=== PATIENT | male | born 1945 | race Caucasian/White ===

== ENCOUNTER → 2018-08-13 10:40 | Outpatient (CLI) | payer BC, SELFPAY ==
[2018-08-13 12:21] LABS: Alanine Aminotransferase 31 IU/L (21-72); Albumin 4.2 g/dL (3.5-5.0); Albumin Globulin Ratio 1.4 (1.0-2.8); Alkaline Phosphatase 73 U/L (38-126); Aspartate Aminotransferase 25 IU/L (17-59); BUN Creatinine Ratio 23.8 (6-22); Bilirubin Total 0.5 mg/dL (0.2-1.3); Blood Urea Nitrogen 19 mg/dL (9-20); Calcium 9.1 mg/dL (8.4-10.2); Carbon Dioxide 27 mmol/L (22-32); Chloride 103 mmol/L (98-107); Cholesterol 166 mg/dL (140-199); Creatine Kinase 140 U/L (55-170); Estimated Glomerular Filt Rate > 60.0 mL/min (>60); Globulin 2.9 g/dL (1.7-4.1); Glucose 112 mg/dL (80-110); HDL Cholesterol 37 mg/dL (40-60); HEMOLYSIS < 15 (0-50); LDL Cholesterol Calculated 112 mg/dL (<100); Potassium 4.3 mmol/L (3.4-5.1); Sodium 140 mmol/L (137-145); Total Protein 7.1 g/dL (6.3-8.2); Triglycerides 86 mg/dL (35-150); Uric Acid 5.5 mg/dL (3.5-8.5)
[2018-08-13 12:56] LABS: Thyroid Stimulating Hormone 1.06 uIU/mL (0.47-4.68)
[2018-08-13 15:38] LABS: Add Manual Diff / Slide Review NO; Basophils Absolute Auto 0 /uL (0-100); Basophils Percent Auto 0.6 % (0-2); Eosinophils Absolute Auto 100 /uL (0-450); Eosinophils Percent Auto 1.7 % (2-4); Hematocrit 46.5 % (41-53); Hemoglobin 15.2 g/dL (13.5-17.5); Lymphocytes Absolute Auto 1300 /uL (1100-4500); Lymphocytes Percent Auto 20.9 % (25-40); Mean Corpuscular HGB Conc 32.8 % (30-36); Mean Corpuscular Hemoglobin 29.2 PG (26-34); Monocytes Absolute Auto 500 /uL (0-900); Monocytes Percent Auto 7.4 % (3-14); Neutrophils Absolute Auto 4500 /uL (1500-7000); Neutrophils Percent Auto 69.4 % (50-75); Platelet Count 209 X10^3/uL (150-400); Red Blood Cell Count 5.22 X10^6/uL (4.5-5.9); Red Cell Distribution Width 15.5 % (11.6-14.8); White Blood Cell Count 6.4 X10^3/uL (4.5-11.0)
== END ==
PROVIDERS: Visit Provider Internal Medicine
DX: E78.5 Hyperlipidemia, unspecified (principal); R73.9 Hyperglycemia, unspecified; M10.9 Gout, unspecified; Z00.01 Encounter for general adult medical examination with abnormal findings
CPT/HCPCS: 36415; 80053; 80061; 82550; 83036; 84443; 84550; 85025

== ENCOUNTER 2018-09-26 18:29 | Emergency (ER) | payer BC, SELFPAY ==
[2018-09-26 18:37] VITALS: BP 147/95; PULSE 72; RESP 16; TEMP 36.8; O2SAT 96
--- NOTE | 2018-09-26 18:38 | DI.CT.S_ITS ---
PROCEDURE: CT HEAD/BRAIN WO CON INDICATIONS: syncope on xeralto TECHNIQUE: Noncontrast 4.5 mm thick angled axial sections acquired from the foramen magnum to the vertex, with coronal and sagittal reformats. For radiation dose reduction, the following was used: automated exposure control, adjustment of mA and/or kV according to patient size. COMPARISON: None. FINDINGS: Image quality: Excellent. CSF spaces: Basal cisterns are patent. No extra-axial fluid collections. The ventricles are symmetric in size and shape. Brain: No intracranial bleeds or masses. There is mild cerebral volume loss for age, with resultant ventricular and sulcal prominence. There are mild periventricular and deep white matter chronic small vessel ischemic changes. There is intracranial internal carotid artery atherosclerosis. Skull and face: Calvarium and visualized facial bones appear intact, without suspicious lesions. Sinuses: Visualized sinuses and mastoids are clear. IMPRESSION: No acute intracranial disease process. Dictated by: Marguerite Cleveland MD, PhD on 09/26/2018 at 19:20 Approved by: Marguerite Cleveland MD, PhD on 09/26/2018 at 19:22
[2018-09-26] MEDS: SODIUM CHLORIDE 0.9% 1,000 ML 1000 ML IV (18:45)
[2018-09-26 18:50] LABS: Add Manual Diff / Slide Review NO; Basophils Absolute Auto 0 /uL (0-100); Basophils Percent Auto 0.5 % (0-2); Eosinophils Absolute Auto 100 /uL (0-450); Eosinophils Percent Auto 1.3 % (2-4); Hematocrit 44.9 % (41-53); Hemoglobin 14.9 g/dL (13.5-17.5); Lymphocytes Absolute Auto 900 /uL (1100-4500); Lymphocytes Percent Auto 10.2 % (25-40); Mean Corpuscular HGB Conc 33.1 % (30-36); Mean Corpuscular Hemoglobin 29.6 PG (26-34); Mean Corpuscular Volume 89.2 fL (80-100); Monocytes Absolute Auto 500 /uL (0-900); Neutrophils Absolute Auto 7000 /uL (1500-7000); Platelet Count 187 X10^3/uL (150-400); Red Blood Cell Count 5.03 X10^6/uL (4.5-5.9); Red Cell Distribution Width 15.5 % (11.6-14.8); White Blood Cell Count 8.6 X10^3/uL (4.5-11.0)
[2018-09-26 18:57] LABS: INR 1.1 (0.9-1.3); Prothrombin Time 12.6 SECONDS (10.1-12.7)
[2018-09-26 19:00] VITALS: BP 109/85; PULSE 86; RESP 18; O2SAT 100
[2018-09-26 19:01] LABS: Alanine Aminotransferase 22 IU/L (21-72); Albumin 4.4 g/dL (3.5-5.0); Albumin Globulin Ratio 1.6 (1.0-2.8); Alkaline Phosphatase 63 U/L (38-126); Aspartate Aminotransferase 23 IU/L (17-59); Bilirubin Total 0.6 mg/dL (0.2-1.3); Blood Urea Nitrogen 20 mg/dL (9-20); Calcium 9.4 mg/dL (8.4-10.2); Carbon Dioxide 30 mmol/L (22-32); Chloride 99 mmol/L (98-107); Creatine Kinase 168 U/L (55-170); Estimated Glomerular Filt Rate > 60.0 mL/min (>60); Globulin 2.7 g/dL (1.7-4.1); Glucose 115 mg/dL (80-110); HEMOLYSIS < 15 (0-50); Potassium 4.5 mmol/L (3.4-5.1); Sodium 137 mmol/L (137-145); Total Protein 7.1 g/dL (6.3-8.2)
--- NOTE | 2018-09-26 19:12 | ED_ITS ---
HPI - Syncope General Chief Complaint: Syncope Stated Complaint: syncope Time Seen by Provider: 09/26/18 18:37 Source: patient and EMS Mode of arrival: EMS Limitations: no limitations History of Present Illness HPI narrative: Patient is 72-year-old male presents with near syncopal episode. He states he was outside gardening all day he had a cup of coffee he does have some yogurt inguinal for breakfast. By this afternoon he went to get his haircut he felt extremely dizzy lightheaded. He may have passed out briefly he says he overall around him he was drooling which does not really remember. He felt like he was going to pass out he knew it was going to happen he got extremely flushed. He has no chest pain no heart palpitations. No focal deficits. He is on Xarelto for atrial fibrillation. No history of stroke. MD complaint: felt faint -: second(s) Prodromal symptoms: lightheaded Witnessed: yes - by bystander Related Data Allergies Allergy/AdvReac Type Severity Reaction Status Date / Time No Known Drug Allergies Allergy Verified 09/26/18 18:37 Review of Systems Review of Systems ROS Unobtainable: All systems reviewed & are unremarkable except as noted in HPI and below Constitutional Denies chills, Denies fever(s), Denies lethargy and Denies weakness Eyes Denies change in vision, Denies eye discharge, Denies irritation and Denies loss of vision ENT Ears, Nose, Mouth, and Throat: Denies change in voice, Denies neck pain and Denies sore throat Cardiovascular Denies chest pain, Reports irregular heart rhythm, Reports lightheadedness and Denies dyspnea Respiratory Denies dyspnea Gastrointestinal Gastrointestinal: Denies abdominal pain, Denies change in bowel habits, Denies diarrhea, Denies nausea and Denies vomiting Musculoskeletal Denies neck pain Integumentary/Breasts Denies pruritus, Denies erythema, Denies rash and Denies wounds Neurologic Denies loss of vision and Denies weakness FOR[facility]LY [facility], [facility] Medical History Atrial fibrillation (Acute) Hyperlipidemia (Acute) Hypertension (Acute) Social History (Updated 09/26/18 @ 19:11 by Ana Arboleda DO) Smoking Status: Never smoker alcohol intake: former substance use type: marijuana Social History Smoking Status: Never smoker alcohol intake: former substance use type: marijuana Exam Initial Vital Signs Initial Vital Signs: Vital Signs Temperature 98.2 F 09/26/18 18:37 Pulse Rate 72 09/26/18 18:37 Respiratory Rate 16 09/26/18 18:37 Blood Pressure 147/95 H 09/26/18 18:37 Pulse Oximetry 96 09/26/18 18:37 GENERAL: Well-appearing, well-nourished and in no acute distress. HEENT: Head atraumatic,EOMI, pupils reactive, face symmetric, CARDIOVASCULAR: Regular rate and rhythm without murmurs, rubs or gallops. RESPIRATORY: Breath sounds equal bilaterally, no wheezes rales or rhonchi. ABDOMEN: Soft, nontender. Normoactive bowel sounds all 4 quadrants. No guarding or rebound. EXTREMITIES: Normal range of motion, no clubbing or edema. Neurovascularly intact NEUROLOGICAL: Alert and oriented x4.Normal gait and speech. Cranial nerves II through XII grossly intact. Good gcahhd-[id number], good [id number], strength equal bilaterally, no dysarthria or aphasia, sensation in tact to soft touch bilaterally, no visual changes, no facial droop SKIN: Warm, dry, no laceration, no petechiae, no rashes or lesions. Scores NIH Stroke Scale Level of Conciousness: Alert, keenly responsive Ask month/age: Answers both questions correctly. Open/close eyes, close hand: Performs both tasks correctly Best gaze horizontal: Normal Visual marie: No visual loss Facial palsy: Normal symetrical movement Left arm drift: No drift for full 10 sec Right arm drift: No drift for full 10 sec Left leg drift: No drift for full 10 sec Right leg drift: No drift for full 10 sec Limb ataxia: Absent Sensory on face/arms/legs: Normal, no sensory loss Best language: No aphasia, normal Dysarthria: Normal Extinction or inattention: No abnormality Total NIH Stroke scale score: 0 Course Orders Ordered: ED Orders 09/26/18 18:38 CT head/brain wo con Stat 09/26/18 18:42 Complete Blood Count AUTO DIFF Stat Comprehensive Metabolic Panel Stat Prothrombin Time INR Stat Troponin & CK Cardiac Panel Stat Discontinued Medications Sodium Chloride (Normal Saline 0.9%) 1,000 mls @ 1,000 mls/hr IV BOLUS ONE Stop: 09/26/18 19:36 Last Admin: 09/26/18 18:45 Dose: 1,000 mls/hr Vital Signs - 8 hr 09/26/18 19:32 Pulse Rate 75 Respiratory Rate 19 Blood Pressure [Left Arm] 126/87 Pulse Oximetry 96 MDM - Syncope Lab Data Attestation: I reviewed the patient's lab results. Result diagrams: 09/26/18 18:42 09/26/18 18:42 Lab Results 09/26/18 09/26/18 09/26/18 Range/Units 18:42 18:42 18:42 WBC 8.6 (4.5-11.0) X10^3/uL RBC 5.03 (4.5-5.9) X10^6/uL Hgb 14.9 (13.5-17.5) g/dL Hct 44.9 (41-53) % MCV 89.2 (80-100) fL MCH 29.6 (26-34) PG MCHC 33.1 (30-36) % RDW 15.5 H (11.6-14.8) % Plt Count 187 (150-400) X10^3/uL Neut % (Auto) 82.0 H (50-75) % Lymph % (Auto) 10.2 L (25-40) % [place] % (Auto) 6.0 (3-14) % Eos % (Auto) 1.3 L (2-4) % Baso % (Auto) 0.5 (0-2) % Neut # (Auto) 7000 (5702-5981) /uL Lymph # (Auto) 900 L (6092-9423) /uL [place] # (Auto) 500 (0-900) /uL Eos # (Auto) 100 (0-450) /uL Baso # (Auto) 0 (0-100) /uL PT 12.6 (10.1-12.7) SECONDS INR 1.1 (0.9-1.3) Sodium 137 (137-145) mmol/L Potassium 4.5 (3.4-5.1) mmol/L Chloride 99 (98-107) mmol/L Carbon Dioxide 30 (22-32) mmol/L BUN 20 (9-20) mg/dL Creatinine 1.00 (0.66-1.25) mg/dL Estimated GFR > 60.0 (>60) mL/min BUN/Creatinine Ratio 20.0 (6-22) Glucose 115 H (80-110) mg/dL Calcium 9.4 (8.4-10.2) mg/dL Total Bilirubin 0.6 (0.2-1.3) mg/dL AST 23 (17-59) IU/L ALT 22 (21-72) IU/L Alkaline Phosphatase 63 (38-126) U/L Total Creatine Kinase 168 (55-170) U/L CK-MB (CK-2) 2.47 H (<2.37) ng/mL CK-MB (CK-2) Rel Index 1.5 (1.5-5.0) % Troponin I < 0.012 (0.01-0.034) ng/mL Total Protein 7.1 (6.3-8.2) g/dL Albumin 4.4 (3.5-5.0) g/dL Globulin 2.7 (1.7-4.1) g/dL Albumin/Globulin Ratio 1.6 (1.0-2.8) Urine Dip Bedside Urine Glucose Negative Bedside Urine Bilirubin - Negative Bedside Urine Ketone - Negative Urine Specific [place] 1.015 Bedside Urine Occult Blood - Negative Bedside Urine pH 6.0 Bedside Urine Protein +/- 15 Bedside Urine Urobilinogen - Negative Bedside Urine Nitrite - Negative Bedside Urine Leukocytes - Negative Esterase Imaging Data CT scan - head: Radiologist's impression: PROCEDURE: CT HEAD/BRAIN WO CON INDICATIONS: syncope on xeralto TECHNIQUE: Noncontrast 4.5 mm thick angled axial sections acquired from the foramen magnum to the vertex, with coronal and sagittal reformats. For radiation dose reduction, the following was used: automated exposure control, adjustment of mA and/or kV according to patient size. COMPARISON: None. FINDINGS: Image quality: Excellent. CSF spaces: Basal cisterns are patent. No extra-axial fluid collections. The ventricles are symmetric in size and shape. Brain: No intracranial bleeds or masses. There is mild cerebral volume loss for age, with resultant ventricular and sulcal prominence. There are mild periventricular and deep white matter chronic small vessel ischemic changes. There is intracranial internal carotid artery atherosclerosis. Skull and face: Calvarium and visualized facial bones appear intact, without suspicious lesions. Sinuses: Visualized sinuses and mastoids are clear. IMPRESSION: No acute intracranial disease process. Dictated by: Marguerite Cleveland MD, PhD on 09/26/2018 at 19:20 ECG Data Attestation: I personally reviewed and interpreted this ECG as follows: Prior ECG tracings: not available for review Interpretation: Atrial fibrillation rate [address] changes no T-wave inversions no priors to compare MDM Narrative Medical decision making narrative: Patient overall is feeling much better. He has had a L of fluid he has been ambulatory to the restroom. He states his urine is no longer dark yellow clear. This is likely dehydration from being outside without any water and only 1 cup coffee. Discharge Plan Departure Patient Disposition: Home Clinical Impression: Dehydration Discharge Date/Time: 09/26/18 19:53 Interventions: ED Discharge Assessment Last Done: 09/26/18 19:53 Instructions: Fainting, DI for Dehydration -- Adult Activity Restrictions/Additional Instructions: *You have been diagnosed with dehydration, fainting *What to do: He were likely dehydrated today from working out in the sun not drinking water. Please remember to drink water while outside, the warm weather can be dehydrated *Continue to take medications as directed *Follow up with your primary care provider in 2-3 days *Return to ER if you should have increasing lightheadedness, chest pain, repeat episode of passing or any new, worsening or concerning symptoms
[2018-09-26 19:13] LABS: Troponin I < 0.012 ng/mL (0.01-0.034)
[2018-09-26 19:16] LABS: CKMB % Relative Index 1.5 % (1.5-5.0); Creatine Kinase MB 2.47 ng/mL (<2.37)
[2018-09-26 19:32] VITALS: BP 126/87; PULSE 75; RESP 19; O2SAT 96
--- NOTE | 2018-10-03 19:19 | PC.NURSE ---
Late Entry IV stop time 199909/26/18. 1000mls infused.
== END 2018-09-26 19:53 | disposition home or self-care (01) ==
PROVIDERS: Emergency Provider Emergency Medicine
DX: E86.0 Dehydration (principal); R55 Syncope and collapse; Z79.01 Long term (current) use of anticoagulants
CPT/HCPCS: 70450; 80053; 81003; 82550; 82553; 84484; 85025; 85610; 93005; 96360; 99283; 99285

== ENCOUNTER → 2020-03-24 12:09 | Outpatient (CLI) | payer OTHER, SELFPAY ==
[2020-03-24 13:01] LABS: Add Manual Diff / Slide Review NO; Basophils Absolute Auto 0 /uL (0-100); Basophils Percent Auto 0.3 % (0-2); Eosinophils Absolute Auto 100 /uL (0-450); Eosinophils Percent Auto 1.3 % (2-4); Hematocrit 46.6 % (41-53); Hemoglobin 15.3 g/dL (13.5-17.5); Lymphocytes Absolute Auto 1100 /uL (1100-4500); Lymphocytes Percent Auto 15.1 % (25-40); Mean Corpuscular HGB Conc 32.7 % (30-36); Mean Corpuscular Hemoglobin 29.2 PG (26-34); Mean Corpuscular Volume 89.1 fL (80-100); Monocytes Absolute Auto 400 /uL (0-900); Monocytes Percent Auto 5.9 % (3-14); Neutrophils Absolute Auto 5900 /uL (1500-7000); Neutrophils Percent Auto 77.4 % (50-75); Platelet Count 187 X10^3/uL (150-400); Red Blood Cell Count 5.23 X10^6/uL (4.5-5.9); Red Cell Distribution Width 15.2 % (11.6-14.8); White Blood Cell Count 7.6 X10^3/uL (4.5-11.0)
[2020-03-24 13:18] LABS: Hemoglobin A1C% w Est Avg Glu 6.3 % (4.0-6.0)
[2020-03-24 13:24] LABS: Alanine Aminotransferase 23 IU/L (<50); Albumin 4.1 g/dL (3.5-5.0); Albumin Globulin Ratio 1.4 (1.0-2.8); Alkaline Phosphatase 75 U/L (38-126); Aspartate Aminotransferase 24 IU/L (17-59); BUN Creatinine Ratio 29.6 (6-22); Bilirubin Total 0.8 mg/dL (0.2-1.3); Blood Urea Nitrogen 21 mg/dL (9-20); Calcium 9.2 mg/dL (8.4-10.2); Carbon Dioxide 28 mmol/L (22-32); Chloride 105 mmol/L (98-107); Creatine Kinase 95 U/L (55-170); Estimated Glomerular Filt Rate > 60.0 mL/min (>60); Globulin 2.9 g/dL (1.7-4.1); Glucose 102 mg/dL (80-110); HEMOLYSIS < 15 (0-50); Potassium 4.2 mmol/L (3.4-5.1); Sodium 137 mmol/L (137-145)
[2020-03-24 13:46] LABS: Thyroid Stimulating Hormone 0.855 uIU/mL (0.47-4.68)
== END ==
DX: Z00.00 Encounter for general adult medical examination without abnormal findings (principal); M10.9 Gout, unspecified; E78.5 Hyperlipidemia, unspecified; R73.9 Hyperglycemia, unspecified; I10 Essential (primary) hypertension
CPT/HCPCS: 36415; 80053; 80061; 82550; 83036; 84443; 84550; 85025

== ENCOUNTER → 2020-05-11 13:02 | Outpatient (CLI) | payer OTHER, SELFPAY ==
[2020-05-11] MEDS: COVID-19 VACC #1, MRNA(MOD) 100 MCG/0.5 ML VIAL IM (13:11)
== END ==
PROVIDERS: Visit Provider Internal Medicine
DX: Z23 Encounter for immunization (principal)
CPT/HCPCS: 0011A; 91301

== ENCOUNTER → 2020-06-08 12:53 | Outpatient (CLI) | payer OTHER, SELFPAY ==
[2020-06-08] MEDS: COVID-19 VACC #2, MRNA(MOD) 100 MCG/0.5 ML VIAL IM (13:06)
== END ==
PROVIDERS: Visit Provider Internal Medicine
DX: Z23 Encounter for immunization (principal)
CPT/HCPCS: 0012A; 91301

== ENCOUNTER → 2021-01-31 15:04 | Outpatient (CLI) | payer OTHER, SELFPAY ==
[2021-01-31 15:39] LABS: Add Manual Diff / Slide Review NO; Basophils Absolute Auto 100 /uL (0-100); Basophils Percent Auto 1.1 % (0-2); Eosinophils Absolute Auto 100 /uL (0-450); Eosinophils Percent Auto 1.7 % (2-4); Hematocrit 43.6 % (41-53); Hemoglobin 14.4 g/dL (13.5-17.5); Lymphocytes Absolute Auto 1200 /uL (1100-4500); Lymphocytes Percent Auto 16.2 % (25-40); Mean Corpuscular HGB Conc 33.1 % (30-36); Mean Corpuscular Hemoglobin 29.2 PG (26-34); Mean Corpuscular Volume 88.2 fL (80-100); Monocytes Absolute Auto 500 /uL (0-900); Monocytes Percent Auto 6.4 % (3-14); Neutrophils Absolute Auto 5400 /uL (1500-7000); Neutrophils Percent Auto 74.6 % (50-75); Platelet Count 192 X10^3/uL (150-400); Red Blood Cell Count 4.94 X10^6/uL (4.5-5.9); Red Cell Distribution Width 14.8 % (11.6-14.8); White Blood Cell Count 7.3 X10^3/uL (4.5-11.0)
[2021-01-31 15:45] LABS: Appearance Urine UA CLEAR; Bilirubin Urine UA NEGATIVE (NEGATIVE); Color Urine UA YELLOW; Glucose Urine UA NEGATIVE (Negative); Ketones Urine UA NEGATIVE (NEGATIVE); Leukocyte Esterase Urine UA TRACE (NEGATIVE); Nitrite Urine UA NEGATIVE (Negative); Occult Blood Urine UA TRACE-LYSED (Negative); Protein Urine UA TRACE (Negative); Specific Gravity Urine UA 1.025 (1.000-1.035); Urobilinogen Urine UA 0.2 E.U./dL (0.2)
[2021-01-31 16:17] LABS: Bacteria Urine Occasional (0-1); Culture Indicated Urine Specimen Cultured; Hyaline Casts Urine 1-5/LPF; RBC Urine 5-10/HPF (0-5/HPF); WBC Urine 5-10/HPF (0-5/HPF)
[2021-01-31 16:29] LABS: Hemoglobin A1C% w Est Avg Glu 5.9 % (4.0-6.0)
[2021-01-31 17:40] LABS: BUN Creatinine Ratio 19.8 (6-22); Blood Urea Nitrogen 17 mg/dL (9-20); Calcium 9.4 mg/dL (8.4-10.2); Carbon Dioxide 30 mmol/L (22-32); Chloride 103 mmol/L (98-107); Estimated Glomerular Filt Rate > 60.0 mL/min (>60); Glucose 99 mg/dL (80-110); HEMOLYSIS < 15 (0-50); Potassium 4.6 mmol/L (3.4-5.1); Sodium 140 mmol/L (137-145)
== END ==
PROVIDERS: Referring Provider Orthopaedic Surgery; Visit Provider Orthopaedic Surgery
DX: Z01.812 Encounter for preprocedural laboratory examination (principal); R73.9 Hyperglycemia, unspecified
CPT/HCPCS: 36415; 80048; 81001; 83036; 85025; 87086

== ENCOUNTER → 2021-02-05 14:19 | Outpatient (CLI) | payer OTHER, SELFPAY ==
[2021-02-05 16:55] LABS: COVID19 -Nasal RAPID Negative (Negative)
== END ==
PROVIDERS: Referring Provider Nurse Practitioner Family; Visit Provider Nurse Practitioner Family
DX: Z20.822 Contact with and (suspected) exposure to COVID-19 (principal)
CPT/HCPCS: 87635

== ENCOUNTER 2021-02-06 08:46 | Day surgery (SDC) | payer OTHER, SELFPAY ==
[2021-02-05 07:15] VITALS: BMI 30.1
[2021-02-06] VITALS (16 sets, daily range): BP systolic 135–161; BP diastolic 75–101; PULSE 67–96; RESP 10–20; TEMP 36.1–36.7; O2SAT 95–100; BMI 30.1
--- NOTE | 2021-02-06 07:35 | DI.RAD.S_ITS ---
PROCEDURE: XR HIP W PEL IF DONE LT 2V INDICATIONS: postop prosthesis placement TECHNIQUE: 4 fluoroscopic images of the pelvis and left hip COMPARISON: None. FINDINGS/IMPRESSION: Intraoperative fluoroscopic images demonstrate a left hip arthroplasty. Dictated by: Adam Conde M.D. on 02/06/2021 at 15:16 Approved by: Adam Conde M.D. on 02/06/2021 at 15:18
[2021-02-06] MEDS: LACTATED RINGERS 1,000 ML 42 ML IV (09:17)
[2021-02-06] MEDS: ACETAMINOPHEN 325 MG TABLET 975 MG PO (09:18)
[2021-02-06] MEDS: PREGABALIN 75 MG CAPSULE PO (09:18)
[2021-02-06] MEDS: CELECOXIB 200 MG CAPSULE PO (09:18)
[2021-02-06] MEDS: VANCOMYCIN 1,000 MG/200 ML PIGGYBACK 200 MG IV (09:29)
--- NOTE | 2021-02-06 10:24 | PM.PREOP ---
Pre-operative Note COVID-19 COVID-19 status: Negative Interval Note History & Physical reviewed/Exam performed by Physician: Yes Changes to H&P: No
--- NOTE | 2021-02-06 10:25 | P.OP_ITS ---
Operative Date/Time/Diagnoses Date of procedure: 02/06/21 Time of procedure: 11:00 Pre-op diagnosis: left hip OA Post-op diagnosis: same Procedure & Clinicians Procedure: Left total hip arthroplasty anterior approach Same procedure as scheduled: Yes Indications: The patient has had progressively worsening left hip pain with radiographic changes consistent with arthritis. Non-operative management has failed and the patient has requested total hip replacement. The risks, benefits and alternatives to surgery were discussed with the patient prior to proceeding. Risks discussed included, but were not limited to, failure to relieve pain, leg length discrepancy, dislocation, stiffness, infection, nerve damage, deep venous thrombosis, pulmonary embolism, stroke, coma, heart attack, permanent paralysis and , as well as the potential need for eventual revision of the prosthetic. Surgeon: Lenora Traore Subgrade Roller Operator: Olivia Watt Anesthesia Type: Spinal Operative Notes Findings: Severe left hip osteoarthritis with mild protrusio, adequate stability Closure Type: primary Specimen(s): none sent Prosthetic devices, grafts, tissues, transplants, or devices: Traore and nephew anthology high offset size 6, 56 mm R3 cup, one 15 mm screw, 36 by +0 Oxinium head Applied: drain(s) Estimated Blood Loss (mL): 250 Blood products transfused: none Procedure in detail: The patient was brought to the operating room. Patient was carefully positioned in the supine position. Time-out was performed and antibiotics were given. Anesthesia was induced. He was positioned in the on the table in order to allow hyperextension of the hip. The left lower extremity was prepped and draped in a standard sterile fashion. An anterior left hip incision was made 1 fingerbreadth lateral to the anterior superior iliac spine and extended distally towards the greater trochanter. Dissection was carried out through skin and subcutaneous tissues. Superficial hemostasis was achieved. The fascia over the tensor fascia benedict was defined and incised with a knife. Two Allis clamps were used to grasp the fascia. Tensor fascia benedict was retracted laterally. A gelpi retractor was placed. Dissection was carried out down along the neck. The circumflex vessels were carefully identified and cauterized with the Aqua Mantis. There was good visualization of the femoral neck. A Cobra was placed superior to the neck and the gluteus fibers were carefully stripped from that superior aspect of the capsule. A 2nd retractor was placed along the inferior aspect of the neck. The rectus insertion along the capsule was partially released. A 3rd retractor that was then gently placed over the rim of the acetabulum under the rectus. Capsule was carefully incised and released from the intertrochanteric line circumferentially superior to the mid sagittal line and inferiorly to the mid sagittal line until the lesser trochanter was palpable. A tag stitch was placed both in the superior and inferior limb of the capsular insertion. Along the acetabulum capsule was also released up to the mid sagittal 12:00 position. A portion of the labrum was resected. A saw was used to perform an osteotomy at the level of the intertrochanteric line and the junction of the superior femoral neck leaving approximately 1 finger breath of residual inferior neck above the lesser trochanter. A 2nd cut was made along the femoral neck at the base of the head and a napkin ring of neck was removed. Corkscrew was placed in the femoral head and the head was removed without difficulty. Retractors were then repositioned around the acetabulum. Residual labrum was resected and additional osteophytes were removed. A reamer that was 4 mm below the templated size was placed by hand in the acetabulum and it was reamed to centralize the acetabulum. It was then reamed up to 2 under the templated size and fluoroscopy was brought in to confirm the position of the reaming and depth of reaming. I reamed 1 under the anticipated size. A trial cup was placed and noted that it was appropriately sized and fluoroscopy confirmed position and depth. The component was open and inserted without difficulty fluoroscopic imaging was used to confirm that the cup had been adequately seated and was well positioned. It was further stabilized with a single screw. Neutral poly liner was placed. The cup was tested and noted to be stable. Attention was then directed to the femur. The femur was gently hyperextended additional capsular release was performed as needed in order to allow adequate visualization of the proximal femur with elevation of the femur. Patient was placed in a hyperextended slightly adducted position with maximum external rotation. Box osteotome was used to check for any residual neck as well as sclerotic bone along the trochanter. [place] pepper was placed in the femur. Additional broaching was performed. Canal finder was used to determine the alignment of the canal and position. Size 1 broach was placed. The canal was then appropriately broached up to a stable size as long as there was adequate stability of the broach and serial advancement of the broach without excessive impingement. Specific attention was directed at avoiding varus attempting to direct the distal aspect of the broach more anteriorly and avoiding excessive anteversion. Trial reduction showed acceptable range of motion, good stability, no posterior impingement, adventism of leg length and appropriate lateral shuck. I also hyperflexed the hip and checked that there was no impingement anteriorly and there was good stability with flexion, adduction and internal rotation. Marcaine and Exparel were injected. The stem was placed without difficulty. Repeat trial reduction and x-ray showed acceptable overall position, length, and no evidence of the femoral fracture. Final head was placed. Wound was meticulously irrigated with normal saline. The hip was reduced and additional Exparel and Marcaine were injected. The capsule was closed with interrupted nonabsorbable sutures. The fascia of the tensor was closed with interrupted and running Vicryl. No drain was placed. Any tensor fascia benedict muscle that appeared to be contused or injured which was a minimal amount was carefully resected. Capsule around the tensor was injected with Exparel and Marcaine. The skin was closed with barbed stitches for the subcutaneous tissue and skin. We also used surgical glue. The wound was dressed sterilely. Brief Betadine soak was also used and was meticulously irrigated with normal saline. Patient was transferred to recovery room in satisfactory condition. Complications: none Post-operative Condition: stable Disposition: Acute Care Plan for aftercare: The patient will be maintained on a standard total hip replacement protocol with weight bearing as tolerated and anterior hip precautions. The patient will receive Aspirin and sequential compression devices for DVT prophylaxis. The patient will be discharged home when safe for the home environment.
[2021-02-06] MEDS: CEFAZOLIN 1 GM VIAL 2 GM IV ×2 (11:00→18:54)
[2021-02-06] MEDS: TRANEXAMIC ACID 1,000 MG VIAL 1000 MG INJ ×2 (11:10→13:10)
--- NOTE | 2021-02-06 11:24 | SUR.OPER ---
Supine on padded [place] table with bilateral legs secured in padded positioning boots and suspended in positioning spars, operative leg in traction per surgeon. Head on one pillow. Arm on non-operative side secured on padded armboard <90 degrees abduction. Arm on operative side padded and resting across chest then secured with tape over sheet. Padded perineal post in place per surgeon.
[2021-02-06] MEDS: BUPIVACAINE LIPOSOME 266 MG/20 ML VIAL INJ (11:33)
[2021-02-06] MEDS: BUPIVACAINE 0.25% (PF) 60 ML, EPINEPHrine 0.3 MG INJ (11:34)
--- NOTE | 2021-02-06 12:00 | DI.RAD.S_ITS ---
PROCEDURE: XR HIP W PEL IF DONE LT 2V INDICATIONS: POST OP TOTAL LEFT HIP TECHNIQUE: AP pelvis and lateral view of the left hip acquired. COMPARISON: [facility] [place], [place], XR PELVIS WITH LATERAL HIP LEFT, 01/17/2021, 15:26. [facility], CR, XR HIP W PEL IF DONE LT 2V, 02/06/2021, 12:20. FINDINGS: Bones: Patient is status post bilateral hip arthroplasty, with hardware components in expected positions. The hip joint appears congruent. The visualized bony structures appear intact. Soft tissues: Overlying postoperative changes are noted. No suspicious soft tissue densities. IMPRESSION: Bilateral hip arthroplasties, the left of which is new with expected immediate postoperative appearance. Dictated by: Marko Cooley [facility] Interpreted: Monserrat Cruz MD on 02/06/2021 at 15:02 Approved by: Monserrat Cruz M.D. on 02/06/2021 at 16:15
[2021-02-06] MEDS: HYDROMORPHONE 2 MG INJ IV ×2 (13:55→14:04)
[2021-02-06] MEDS: hydrOXYzine 50 MG/ML INJ 25 MG IM (14:08)
[2021-02-06] MEDS: OXYCODONE IR 5 MG TABLET PO ×2 (14:17→14:53)
[2021-02-06] MEDS: LACTATED RINGERS 1,000 ML 125 ML IV (15:30)
[2021-02-06] MEDS: IBUPROFEN 400 MG TABLET PO (16:23)
[2021-02-06] MEDS: ACETAMINOPHEN 325 MG TABLET 650 MG PO ×2 (16:23→21:01)
[2021-02-06] MEDS: OXYCODONE IR 5 MG TABLET 10 MG PO ×2 (18:54→23:58)
[2021-02-06] MEDS: DOCUSATE 100 MG CAPSULE PO (21:00)
[2021-02-06] MEDS: ASPIRIN EC 81 MG TABLET PO (21:00)
[2021-02-06] MEDS: ATORVASTATIN 20 MG TABLET 10 MG PO (21:00)
[2021-02-07] MEDS: OXYCODONE IR 5 MG TABLET 10 MG PO ×3 (03:26→12:16)
[2021-02-07] MEDS: CEFAZOLIN 1 GM VIAL 2 GM IV (03:28)
[2021-02-07 03:47] VITALS: BP 136/72; PULSE 80; RESP 16; TEMP 36.4; O2SAT 96
[2021-02-07 05:36] LABS: Hematocrit 40.8 % (41-53); Hemoglobin 13.5 g/dL (13.5-17.5)
--- NOTE | 2021-02-07 07:38 | P.DS_ITS ---
History of Present Illness History of Present Illness Date Patient Seen: 02/07/21 Time Patient Seen: 07:38 Chief complaint: Left hip pain s/p left VANESSA Narrative: Patient is complaining of mild left hip pain this morning. He is complaining of new left-sided lateral thigh numbness since surgery. Nausea or vomiting. No fevers, chills, night sweats. Patient states he is feeling good overall and would like to be discharged home once cleared by Physical therapy. Discharge Providers Provider Discharge Date: 02/07/21 Primary care physician: Doctor Radha MD Consults: 02/05/21 08:18 Consult to Anesthesiology Routine Comment: Consulting Provider: Anesthesiologist Reason for consultation: Surgeon requested re:Cardiac 02/06/21 07:35 Consult to Anesthesiology Routine Comment: Consulting Provider: Anesthesiologist Reason for consultation: Regional block for post operative pain control 02/06/21 15:16 Consult to Discharge Planning Routine Comment: Consult to Physical Therapy Evaluate & Treat Comment: Physician Instructions: post op VANESSA protocol Consult to Respiratory Therapy Evaluate & Treat Comment: Physician Instructions: Evaluate and treat Discharge provider: Olivia Watt PA-C Summary Hospital Course Discharge Diagnosis: Left hip osteoarthritis Hospital Course: Date of procedure: 02/06/21 Time of procedure: 11:00 Procedure & Clinicians Procedure: Left total hip arthroplasty anterior approach Same procedure as scheduled: Yes Indications: The patient has had progressively worsening left hip pain with radi ographic changes consistent with arthritis. Non-operative management has failed and the patient has requested total hip replacement. The risks, benefits and alternatives to surgery were discussed with the patient prior to proceeding. Risks discussed included, but were not limited to, failure to relieve pain, leg length discrepancy, dislocation, stiffness, infection, nerve damage, deep venous thrombosis, pulmonary embolism, stroke, coma, heart attack, permanent paralysis and , as well as the potential need for eventual revision of the prosthetic. Surgeon: Lenora Traore Newspaper Editor Managing: Olivia Watt Anesthesia Type: Spinal Operative Notes Findings: Severe left hip osteoarthritis with mild protrusio, adequate stability Closure Type: primary Specimen(s): none sent Prosthetic devices, grafts, tissues, transplants, or devices: Traore and nephew anthology high offset size 6, 56 mm R3 cup, one 15 mm screw, 36 by +0 Oxinium head Applied: drain(s) Estimated Blood Loss (mL): 250 Blood products transfused: none Status at Discharge Cognitive/behavioral status at discharge: oriented Functional status at discharge: uses cane/walker Overall status at discharge: patient is progressing back to baseline Exam Vital Signs (past 8 hours): - 02/06/21 23:48 02/07/21 03:47 Temperature 97.6 F Pulse Rate 96 H 80 Respiratory Rate 16 16 Blood Pressure 140/75 136/72 Pulse Oximetry 96 Oxygen Delivery Method Room Air Oxygen Flow Rate 0 Narrative Exam Narrative: Pleasant 75-year-old male, resting comfortably in bed, no acute distress. is at bedside. Bilateral lower extremity motor functions are grossly intact. He is grossly intact to light touch in his low of bilateral lower bilateral ankles. Bilateral calves are soft, nontender to palpation. In dressing is clean, dry, intact. 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 Maintain anterior hip precautions x6 weeks. Weightbearing as tolerated from wheel walker -aspirin 81 mg twice daily on 02/07/2021, then resume normal Xarelto on 02/08/2021 -continue with current pain regimen -DC home today when cleared by PT Discharge Plan Discharge Plan Patient Disposition: Home Discharge orders & Medications Discharge Orders: Discharge (Order); Ordered 02/07/21 Ordered By: Olivia Watt Prescriptions: New acetaminophen 500 mg capsule 500 mg PO Q4H MDD Max 6 tabs per day PRN (Reason: fever or pain) Qty: 90 RF: 0 docusate sodium 100 mg Capsule 100 mg PO BID PRN (Reason: Constipation from the narcotic pain meds) Qty: 30 RF: 0 oxycodone 5 mg Tablet 10 mg PO Q3HR PRN (Reason: Pain, Severe (7-10)) Qty: 42 RF: 0 Continued losartan 50 mg Tablet 50 mg PO DAILY RF: 0 simvastatin 20 mg Tablet 20 mg PO BEDTIME RF: 0 naproxen sodium 220 mg Tablet 220 mg PO BID PRN (Reason: Pain) RF: 0 tadalafil [Cialis] 5 mg Tablet 5 mg PO DAILY RF: 0 metoprolol succinate 50 mg Capsule,Sprinkle,Er 24hr 50 mg PO DAILY RF: 0 Xarelto 20 mg Tablet 20 mg PO DAILY Qty: 0 RF: 0 Follow up/Referrals: Miscellaneous,Doctor, [Primary Care Provider] - Lenora Traore MD [Physician] - (10-14 days for postoperative visit) Diet/Activity/Treatments Diet: Diet as Tolerated and Regular Other treatments: Medications: -resume Xarelto 02/08/2021. -OTC Tylenol 500 mg 1 tablet every 4 hours as needed for pain/fever. Max 6 tablets per day. -naproxen as needed for pain/inflammation. Max 4 tabs per day. -Oxycodone 5 mg take 1-2 tablets every 4 hours as needed for moderate-severe pain (narcotic pain medication). -As needed medications: -Ducolax and /or MiraLax as needed for constipation from narcotic pain medications. -Pepcid AC as needed for stomach upset (usually from aspirin or ibu profen). Dressing/Wound care: -Remove the Santosh wrap 48 hours after surgery. -Keep Aquacell dressing in place until postoperative follow-up office visit. -Okay to shower. Keep wound out of direct water stream. No soaking or submerging until all the scabs fall off (approximately 6 weeks). -Please call the office if dressing becomes wet, soiled, or saturated. Activities: -maintain anterior hip precautions x6 weeks -Weight-bearing as tolerated. Use front wheeled walker, and progress to cane when safe. -Continue with home exercises as directed by your physical therapist. -Elevate ?toes above the nose if you have significant swelling in your lower leg. (A wedge pillow is easiest.) -Ice your incision as needed for pain/inflammation/swelling. Protect your skin with a folded pillowcase. Follow-up: -Follow-up with your surgeon or PA in the office in 10-14 days after surgery. -Follow-up with your surgeon 6 weeks postoperatively. Call the office if you have chest pain, shortness of breath, significant swelling that will not resolve with elevating, fever over 101?, significantly worsening pain. [facility]: [phone] Skin/Wound/Dressing Care Report to your healthcare provider any signs of infection, such as:: chills, fever, night sweats, unusual drainage and unusual redness Visit Report/Discharge Packet Instructions: DI for Hip Replacement Stand Alone Forms: Surgery Discharge Discharge Data Primary Care Provider: Radha,Doctor Attending Provider: Lenora Traore
[2021-02-07] MEDS: ASPIRIN EC 81 MG TABLET PO (08:13)
[2021-02-07] MEDS: ACETAMINOPHEN 325 MG TABLET 650 MG PO (08:13)
[2021-02-07] MEDS: DOCUSATE 100 MG CAPSULE PO (08:14)
[2021-02-07] MEDS: METOPROLOL ER 50 MG TABLET PO (08:14)
[2021-02-07] MEDS: LOSARTAN 50 MG TABLET PO (08:14)
[2021-02-07 09:15] VITALS: BP 142/80; PULSE 83; RESP 19; TEMP 36.4; O2SAT 96
--- NOTE | 2021-02-07 09:35 | PT.IIE ---
Current Diagnoses Unilateral primary osteoarthritis, left hip (02/06/21) Surgery Performed Operation Date: 02/06/21 10:45 Actual Procedures p Total Hip Arthroplasty/Anterior Approach(Left) - Lenora Traore MD Medical History (Last Reviewed 02/07/21 @ 07:40 by Olivia Watt PA-C) Atrial fibrillation BPH (benign prostatic hyperplasia) Cerebral atherosclerosis DJD (degenerative joint disease) Hyperlipidemia Hypertension SHAWN on CPAP Pseudophakia (12/14/19) Physical Therapy Inpatient Evaluation/Re-Eval M1 PT/OT-IP Prior Functional Status Start: 02/07/21 13:58 Freq: NEEDED Status: Active Protocol: Document 02/07/21 09:35 AB (Rec: 02/07/21 14:11 AB [id number]) Medical Review Prior Functional Status Medical History Reviewed Yes Communication able to make needs known Mobility and Gait pt stated that he is independent with all mobilities and ambulation without AD Social History Household Members spouse Living Arrangements House Number of Floors (Floors) Two Floors Number of Stairs To Enter/Railing? pt will stay on main level of the house 3 steps descending down to enter the house without rails Home Environment Standard Height Toilet,Walk in Shower Home Equipment Four Wheel Walker,Straight Cane,Crutches,Raised Toilet Seat w/Armrests,Hand Held Shower,Grab Bars In Shower Employment Status Retired M2 PT-IP Current Condition Start: 02/07/21 13:58 Freq: NEEDED Status: Active Protocol: Document 02/07/21 09:35 AB (Rec: 02/07/21 14:11 AB [email or web address]) Physical Therapy Current Condition Current Condition Evaluation Date 02/07/21 Treatment Diagnosis s/p L VANESSA anterior approach; difficulty in walking Onset Date 02/06/21 M3 PT-IP Subjective Start: 02/07/21 13:58 Freq: NEEDED Status: Active Protocol: Document 02/07/21 09:35 AB (Rec: 02/07/21 14:11 AB [email or web address]) Subjective Physical Therapy Visit Type Type Initial Evaluation Visit Start Time 09:35 Visit Stop Time 10:39 Total Visit Minutes 64 Number of PEST CONTROL WORKER HELPER Visits 0 Physical Therapy Visit Comments Patient Comments pt is agreeable to do PT Therapy Pain Assessment Pain When Pain Assessed At Rest Pain Present Pain Present Pain Reported Location Left Hip Intensity 2 Scale Used Numeric (0 - 10) M4 PT-IP Mobility and Gait Start: 02/07/21 13:58 Freq: NEEDED Status: Active Protocol: Document 02/07/21 09:35 AB (Rec: 02/07/21 14:11 AB [email or web address]) PT-Bed Mobility Assessment Supine to Sit Supine to Sit Standby Assistance Sit to Supine Sit to Supine Standby Assistance PT-Transfer Assessment Sit to and From Stand Sit to and from Stand Standby Assistance,Contact Guard Assistance,Use of Upper Extremities Equipment Transfer Assistive Device Gait Belt,Front Wheeled Walker Orthotic/Prosthetic Devices or Brace: No Transfers Transfer Destination Chair Transfer Technique ambulated Transfer Ability Level of Assist Standby Assistance,Contact Guard Assistance,Use of Upper Extremities Comments Mobility Comments educated pt on anterior hip precautions. pt completed supine to sit SBA with pt crossing RLE under LLE to assist but tends to ER LLE and pt reminded regarding hip precautions. pt understood. pt educated on techniques with sit<>supine and adhering to precautions. completed sit<>supine SBA with cues and able to maintain hip precautions. pt sat on EOB SBA. completed sit to stand CGA and cues. ambulated in room using FWW ~ 20 ft SBA to CGA. cues for hip precautions. educated pt on use of 4WW. pt does not have a FWW and prefers to use 4WW. completed ambulation using 4WW ~ 50 ft SBA to CGA and cues for precautions. pt agreed to do stairs. platform step set up and pt completed up/down platform step using SPC SBA to CGA. pt ambulated back to his room using 4WW SBA. sat on chair. pt without any other concerns. NAC came in to assist pt to get ready for d/c. Gait Assessment Gait Gait Assistance Required: Standby Assistance,Contact Guard Assist Distance (Feet) 50 Able to Maintain Weight Bearing Status Yes During Gait Assistive Devices Assistive Device Gait Belt,Front Wheeled Walker ,4 Wheeled Walker Orthotic/Prosthetic Devices or Brace: No Gait Deviations General Gait Pattern Ataxic,Decreased Stride Length Factors Limiting Gait Function Factors Limiting Gait Function Decreased Strength,Pain,Poor Balance,Poor Safety Awareness Comments Gait Comments pls refer to mobility section for details Stair Climbing Assessment Comments Stair Climbing Comments pls refer to mobility section for details PT-Balance Assessment Sitting Balance and Reactions Static Sitting Balance Ability Normal Dynamic Sitting Balance Ability Good Standing Balance and Reactions Static Standing Balance Ability Good Dynamic Standing Balance Ability Fair Device Used 4WW M5 PT-IP Objective Assessments Start: 02/07/21 13:58 Freq: NEEDED Status: Active Protocol: Document 02/07/21 09:35 AB (Rec: 02/07/21 14:11 AB [email or web address]) Orientation Orientation/Cognition Level of Alertness Alert Orientation Name,Age,Birthday,Month,Date, Year,Day of Week,Place, Situation Language Function Ability No Deficits Noted Safety Awareness Decreased Safety Awareness Memory Description Short Term Impaired Gross Range of Motion Lower Extremity ROM Assessment Within Functional Limits Strength Lower Extremity Strength Assessment Left Impaired Hip 3+/5 Knee 4+/5 Coordination Assessment Gross Coordination Gross Coordination WNL Sensation Assessment Sensation Gross Sensation WNL Muscle Tone Muscle Tone WNL Yes M6 PT-IP Treatment Start: 02/07/21 13:58 Freq: NEEDED Status: Active Protocol: Document 02/07/21 09:35 AB (Rec: 02/07/21 14:11 AB [email or web address]) Physical Therapy Treatment Education Education Provided Precautions,Weight Bearing Status,Post-Op Packet,Safety M7 PT-IP Assessment and Plan Start: 02/07/21 13:58 Freq: NEEDED Status: Active Protocol: Document 02/07/21 09:35 AB (Rec: 02/07/21 14:11 AB [email or web address]) PT Summary Assessment and Plan Potential Rehabilitation Potential Good Status of Condition at Evaluation Stable Summary Impairments Pain,ROM,Strength,Balance, Coordination,Sensation,Tone, Cognition,Bed Mobility, Transfers,Gait,Activity Tolerance Assessment Summary pt requirng SBA to CGA with mobility and plans to go home with spouse to assist him. pt may go home when medically stable. Goals Bed Mobility Goal Independent Transfer Goal Independent,Four Wheeled Walker Gait Goal Independent,Four Wheel Walker Gait Distance 300 Other Goals up/down 3 steps SPC mod I Days to Meet Goals 3 Frequency of Treatment Frequency Of Treatment Twice a Day Treatment Plan Physical Therapy Treatment Plan Bed Mobility Training,Transfer Training,Gait Training, Therapeutic Exercise,Balance Retraining,Post Op Education, Discharge Planning,Hot or Cold Pack,Neuromuscular Re-ed, Coordination Retraining,Manual Therapy Precautions Anterior Hip Precautions No Hip Extension,No Hip External Rotation Weight Bearing Status Weight Bearing Status Weight Bear as Tolerated Allowed Weight Bearing Amount (enter % LLE WBAT or #) (%) Recommendations To Nursing Amount of Assist Needed Standby Assistance Discharge Recommendations PT Discharge Recommendations Home with Assistance, Outpatient PT Transportation Needs at Discharge Private Vehicle
--- NOTE | 2021-02-07 11:15 | CM.DANOTE ---
DCP/Assessment: Reviewed chart. Patient is a 75yr male admitted to I. for elective left VANESSA performed on 02-07-21. PCP not listed. Primary payor is 1)[employer] 2)Self pay. Reviewed chart. Spoke with RN and she reports patient discharging this AM without any d/c planning needs. Patient has FWW and plans to do outpatient therapy. FINANCIAL COST ANALYST reports that patient I in room taking a shower. P: Home today. KJS Discharge Planning/Care Management CM Discharge Assessment Start: 02/07/21 10:58 Freq: Status: Active Protocol: Document 02/07/21 10:58 KJS (Rec: 02/07/21 11:15 KJS [id number]) Discharge Planning Assessment Assigned Manager [place] Contact Information Edna Diaz (spouse) ph# Advance Directives? Yes Advance Directives on File No History Provided By Medical Record Prior Living Arrangements House Household Members spouse Type of transporation used prior to Drives own vehicle admit Independent with ADL's Yes Is patient alert and oriented? Yes Caregiver for Another No DME Already Rented / Owned FWW / Walker Patient/Family Preference OP PT Therapy Barriers to Discharge No Discharge Plan Home Transportation Arrangement Family to provide transport. Referrals Initiated None needed Review Status In Process Next Review Type Continued Stay Review Pre-Anesthesia Assessment Start: 02/05/21 07:15 Freq: Status: Active Protocol: Document 02/05/21 07:15 CAB (Rec: 02/05/21 08:16 CAB [id number]) Pre-Anesthesia Assessment Patient Information Reviewed Via Chart Review Diagnostic Results BMP/CMP,CBC,Urinalysis Comment Labs @ 01/31/21, COVID screen @ 02/05/21 Primary Care Provider Michelle López Seen Specialist in Last 12 Months Yes Specialist Seen Nurse Specialist,Orthopedist Primary Language Irish Packer Denture Required No Height 175.26 cm Weight 92.533 kg Body Mass Index (BMI) 30.1 Barriers to Learning None Anesthesia Review Requested Yes: Surgeon requested re: Cardiac alcohol intake former Smoking Status Never smoker Substance Use Type marijuana Pain Present Pain Reported Musculoskeletal Symptoms Joint Pain Patient is completely paralyzed or No completely immobile Mental Status Oriented to own ability Is patient on oxygen? No Does patient have AKERS/SOB No Hx Sleep Apnea Yes CPAP/BIPAP use prescribed used intermittently Currently Taking a Beta Amos Yes: Metoprolol Hx Chest Pain Yes: Denies any current per cardiology visit 01/16/21 Anti-Coagulant Therapy Yes: Xarelto-Unknown what instructions given to pt Has a Nurse Specialist Yes: Dr. Reese - visit Comment Cardiac records scanned to record Urinary Catheter Present No Hx Urinary Self Catheterization No Diabetes No Marital Status Lives With spouse Patient Discharge Plan Description Return Home Advance Directives? Yes
[2021-02-07] MEDS: INFLUENZA HD VACCINE 0.7 ML SYRINGE IM (11:33)
== END 2021-02-07 12:00 | disposition home or self-care (01) ==
LOC: OR 08:49 → AC 12:02
PROVIDERS: Referring Provider Orthopaedic Surgery; Visit Provider Orthopaedic Surgery
PROC: (CPT 27130; principal; 2021-02-06 10:45)
DX: M16.12 Unilateral primary osteoarthritis, left hip (principal); I48.20 Chronic atrial fibrillation, unspecified; I10 Essential (primary) hypertension; N40.0 Benign prostatic hyperplasia without lower urinary tract symptoms; G47.33 Obstructive sleep apnea (adult) (pediatric)
CPT/HCPCS: 27130; 36415; 73502; 76000; 85014; 85018; 90471; 90662; 97116; 97161; 97530; C1776; C9290; J0171; J0690; J1100; J1170; J2250; J2405; J2704; J3010; J3410

== ENCOUNTER → 2021-12-28 12:11 | Outpatient (CLI) | payer OTHER, SELFPAY ==
[2021-02-06 15:47] VITALS: BMI 30.1
[2021-12-28 13:15] LABS: Add Manual Diff / Slide Review NO; Basophils Absolute Auto 0 /uL (0-100); Basophils Percent Auto 0.5 % (0-2); Eosinophils Absolute Auto 100 /uL (0-450); Eosinophils Percent Auto 1.1 % (2-4); Hematocrit 45.2 % (41-53); Hemoglobin 15.3 g/dL (13.5-17.5); Lymphocytes Absolute Auto 1200 /uL (1100-4500); Lymphocytes Percent Auto 18.7 % (25-40); Mean Corpuscular HGB Conc 33.8 % (30-36); Mean Corpuscular Hemoglobin 29.6 PG (26-34); Mean Corpuscular Volume 87.8 fL (80-100); Monocytes Absolute Auto 400 /uL (0-900); Monocytes Percent Auto 5.9 % (3-14); Neutrophils Absolute Auto 4900 /uL (1500-7000); Neutrophils Percent Auto 73.8 % (50-75); Platelet Count 173 X10^3/uL (150-400); Red Blood Cell Count 5.15 X10^6/uL (4.5-5.9); Red Cell Distribution Width 14.6 % (11.6-14.8); White Blood Cell Count 6.6 X10^3/uL (4.5-11.0)
[2021-12-28 13:30] LABS: Hemoglobin A1C% w Est Avg Glu 6.2 % (4.0-6.0)
[2021-12-28 13:40] LABS: Alanine Aminotransferase 22 IU/L (<50); Albumin Globulin Ratio 1.3 (1.0-2.8); Alkaline Phosphatase 64 U/L (38-126); Aspartate Aminotransferase 26 IU/L (17-59); BUN Creatinine Ratio 21.2 (6-22); Bilirubin Total 0.5 mg/dL (0.2-1.3); Blood Urea Nitrogen 18 mg/dL (9-20); Calcium 8.8 mg/dL (8.4-10.2); Carbon Dioxide 29 mmol/L (22-32); Chloride 101 mmol/L (98-107); Cholesterol 151 mg/dL (140-199); Estimated Glomerular Filt Rate > 60 mL/min (>60); Glucose 117 mg/dL (80-110); HDL Cholesterol 40 mg/dL (40-60); HEMOLYSIS < 15 (0-50); LDL Cholesterol Calculated 96 mg/dL (<100); Potassium 4.3 mmol/L (3.4-5.1); Sodium 141 mmol/L (137-145); Triglycerides 74 mg/dL (35-150); Uric Acid 6.1 mg/dL (3.5-8.5)
[2021-12-28 14:08] LABS: TSH w/ Reflex to FT4 0.71 uIU/mL (0.47-4.68)
== END ==
PROVIDERS: PCP Family Medicine; Referring Provider Family Medicine; Visit Provider Family Medicine
DX: E78.5 Hyperlipidemia, unspecified (principal); G47.33 Obstructive sleep apnea (adult) (pediatric); I10 Essential (primary) hypertension; I48.91 Unspecified atrial fibrillation; M10.9 Gout, unspecified; R73.9 Hyperglycemia, unspecified
CPT/HCPCS: 36415; 80053; 80061; 83036; 84443; 84550; 85025

== ENCOUNTER → 2022-09-11 14:29 | Outpatient (CLI) | payer OTHER, SELFPAY ==
[2021-02-06 15:47] VITALS: BMI 30.1
--- NOTE | 2022-09-11 | DI.RAD.S_ITS ---
PROCEDURE: XR CHEST 2V INDICATIONS: PERSISTANT COUGH TECHNIQUE: 2 views of the chest were acquired. COMPARISON: None. FINDINGS: Surgical changes and devices: None. Lungs and pleura: There is diffuse interstitial prominence. No focal airspace consolidation. No pleural effusion or pneumothorax. Mediastinum: Mediastinal contours are normal. Heart size is normal. Bones and chest wall: No suspicious bony abnormalities. Soft tissues appear unremarkable. IMPRESSION: Interstitial prominence suggesting fluid overload. Dictated by: Lisbet Garcia M.D. on 09/11/2022 at 16:04 Approved by: Lisbet Garcia M.D. on 09/11/2022 at 16:04
== END ==
PROVIDERS: PCP Family Medicine; Referring Provider Family Medicine; Visit Provider Family Medicine
DX: R05.9 Cough, unspecified (principal); R06.02 Shortness of breath
CPT/HCPCS: 71046

== ENCOUNTER → 2022-12-25 10:14 | Outpatient (CLI) | payer OTHER, SELFPAY ==
[2021-02-06 15:47] VITALS: BMI 30.1
[2022-12-25 10:52] LABS: Add Manual Diff / Slide Review NO; Basophils Absolute Auto 0 /uL (0-100); Basophils Percent Auto 0.7 % (0-2); Eosinophils Absolute Auto 100 /uL (0-450); Eosinophils Percent Auto 1.9 % (2-4); Hematocrit 43.6 % (41-53); Hemoglobin 14.7 g/dL (13.5-17.5); Lymphocytes Absolute Auto 1000 /uL (1100-4500); Lymphocytes Percent Auto 15.6 % (25-40); Mean Corpuscular HGB Conc 33.6 % (30-36); Mean Corpuscular Hemoglobin 29.5 PG (26-34); Mean Corpuscular Volume 87.7 fL (80-100); Monocytes Absolute Auto 400 /uL (0-900); Monocytes Percent Auto 6.9 % (3-14); Neutrophils Absolute Auto 4800 /uL (1500-7000); Neutrophils Percent Auto 74.9 % (50-75); Platelet Count 174 X10^3/uL (150-400); Red Blood Cell Count 4.97 X10^6/uL (4.5-5.9); Red Cell Distribution Width 14.6 % (11.6-14.8); White Blood Cell Count 6.3 X10^3/uL (4.5-11.0)
[2022-12-25 11:08] LABS: Hemoglobin A1C% w Est Avg Glu 6.1 % (4.0-6.0)
[2022-12-25 11:18] LABS: Alanine Aminotransferase 23 IU/L (<50); Albumin 4.1 g/dL (3.5-5.0); Albumin Globulin Ratio 1.6 (1.0-2.8); Alkaline Phosphatase 59 U/L (38-126); Aspartate Aminotransferase 25 IU/L (17-59); BUN Creatinine Ratio 21.2 (6-22); Bilirubin Total 0.6 mg/dL (0.2-1.3); Blood Urea Nitrogen 18 mg/dL (9-20); Calcium 8.8 mg/dL (8.4-10.2); Carbon Dioxide 27 mmol/L (22-32); Chloride 103 mmol/L (98-107); Cholesterol 157 mg/dL (140-199); Estimated Glomerular Filt Rate > 60 mL/min (>60); Globulin 2.5 g/dL (1.7-4.1); Glucose 115 mg/dL (80-110); HDL Cholesterol 44 mg/dL (40-60); HEMOLYSIS < 15 (0-50); LDL Cholesterol Calculated 97 mg/dL (<100); Potassium 4.7 mmol/L (3.4-5.1); Sodium 137 mmol/L (137-145); Total Protein 6.6 g/dL (6.3-8.2); Triglycerides 78 mg/dL (35-150); Uric Acid 5.7 mg/dL (3.5-8.5)
[2022-12-25 11:43] LABS: TSH w/ Reflex to FT4 0.83 uIU/mL (0.47-4.68)
[2022-12-25 11:44] LABS: Prostate Specific Antigen 4.07 ng/mL (0.10-4.00)
== END ==
PROVIDERS: PCP Family Medicine; Referring Provider Family Medicine; Visit Provider Family Medicine
DX: E78.5 Hyperlipidemia, unspecified (principal); M10.9 Gout, unspecified; R73.9 Hyperglycemia, unspecified; Z68.32 Body mass index [BMI] 32.0-32.9, adult
CPT/HCPCS: 36415; 80053; 80061; 83036; 84153; 84443; 84550; 85025